=== PATIENT | female | born 1975 | race Caucasian/White ===

== ENCOUNTER 2020-05-29 11:44 | Emergency (ER) | payer BC, SELFPAY ==
[2020-05-29 12:00] VITALS: BP 129/87; PULSE 101; RESP 20; TEMP 36.7; O2SAT 100
--- NOTE | 2020-05-29 12:03 | ED.FEVER ---
HPI - Fever General Chief Complaint: Headache Stated Complaint: evans/fever Source: patient and RN notes reviewed Limitations: no limitations History of Present Illness HPI Narrative: The patient, previously mostly healthy smoker/nondrinker, presents with fever. Patient states she has a half week history of URI followed by one day of fever measured temporally 100.6. This is associated with nasal congestion, myalgias with frontal headache. No significant cough, S OB, wheezing, CP, loss of taste/smell, travel, sick family, earache, sore throat, neck pain, N/V/D, rash. She requests Covid testing for work, declines influenza. The patient agrees, in light of health emergency- in my medical judgement, only a personal chat was preferable to fully undress & examine the patient exhibiting potential COVID symptoms, in order to limit risk of infection. Related Data Home Medications Medication Instructions Recorded Confirmed levonorgestrel [Mirena] 1 device INTRAUTERINE ONCE 05/29/20 05/29/20 Allergies Allergy/AdvReac Type Severity Reaction Status Date / Time No Known Allergies Allergy Verified 05/29/20 12:06 Review of Systems Review of Systems: Narrative: General/Constitutional: No weight loss, REPORTS fever Eyes: N0: Redness,discharge Ears/Nose/Throat: No: Epistaxis,ear discharge Respiratory: Denies: Hemoptysis Gastrointestinal: No Vomiting, Bleeding-rectal Skin: No Lumps, eruption Neurologic: No Focal Weakness,Sz Hematologic: Denies: Petechiae/Purpura Psychiatric: No: Suicida ideationl All Other Systems: Reviewed and Negative PMFSH Comments At time of signature, agree with nursing past medical, surgical, social and family history. There is no relevant family history pertinent to the presenting complaint Exam Narrative: Exam Narrative: General Appearance: Well appearing, Conjunctiva clear Ears: Auditory canal normal, Nose: Rhinorrhea, Mucousal erythema Mouth/Throat: MM moist, supple, Respiratory: No respiratory distress, airway patent Cardiovascular: RRR, No JVD Skin: Warm, Dry Neurological: A&O x3, , Normal affect Course Vital Signs Vital signs: Vital Signs Temperature 98.1 F 05/29/20 12:00 Pulse Rate 101 H 05/29/20 12:00 Respiratory Rate 20 05/29/20 12:00 Blood Pressure 129/87 05/29/20 12:00 Pulse Oximetry 100 05/29/20 12:00 Temperature 98.1 F 05/29/20 12:00 Pulse Rate 101 H 05/29/20 12:00 Respiratory Rate 20 05/29/20 12:00 Blood Pressure 129/87 05/29/20 12:00 Pulse Oximetry 100 05/29/20 12:00 Discharge Plan Discharge Clinical Impression: Fever Qualifiers: Fever type: unspecified Qualified Code(s): R50.9 - Fever, unspecified Patient Disposition: Home, Self-Care Condition: Stable Instructions: Antibiotic Form, Rhinosinusitis (ED) Additional Instructions: Also try OTC preparations like Mucinex, Flonase, anthistamines [claritin, melchor, etc] Supplements like zinc and vitamin D are helpful during the viral season Prescriptions: New azithromycin 250 mg tablet See Rx Instructions .ROUTE .COMPLEX Qty: 6 RF: 0 tramadol 50 mg tablet 50 mg PO TID PRN (Reason: pain) Qty: 15 RF: 1 azelastine 137 mcg (0.1 %) aerosol,spray 137 mcg NASAL Q12H Qty: 30 RF: 0 No Action Mirena 20 mcg/24 hours (5 yrs) 52 mg Intrauterine Device 1 device INTRAUTERINE ONCE RF: 0 Other Ambulatory Orders: SARS-CoV-2 RNA, Qual RT-PCR (Routine) Location: Determined by Patient Ordered By: German Gould Follow-up/Referrals: UNKNOWN,DOCTOR [Primary Care Provider] - Stand Alone Forms: Work/School Release IP
== END 2020-05-29 12:54 | disposition home or self-care (01) ==
PROVIDERS: Emergency Provider Emergency Medicine
DX: R50.9 Fever, unspecified (principal); Z20.828 Contact with and (suspected) exposure to other viral communicable diseases
CPT/HCPCS: 99213; G0463

== ENCOUNTER 2020-05-31 12:40 | Outpatient (NON) | payer BC, SELFPAY ==
[2020-06-01 13:09] LABS: SARS-CoV-2 RNA PCR Negative
== END 2020-05-31 12:41 ==
LOC: ANHCOVIDDT 12:41
PROVIDERS: Visit Provider Emergency Medicine
DX: Z20.828 Contact with and (suspected) exposure to other viral communicable diseases (principal); R50.9 Fever, unspecified
CPT/HCPCS: 87635; C9803; U0003

== ENCOUNTER 2021-08-27 10:03 | Emergency (ER) | payer BC, SELFPAY ==
[2021-08-27 10:15] VITALS: BP 128/76; PULSE 104; RESP 16; TEMP 36.3; O2SAT 100
--- NOTE | 2021-08-27 10:16 | ED.URI ---
HPI - URI/Sore Throat General Chief Complaint: Upper Respiratory Infection Stated Complaint: Congestion,Cough Time Seen by Provider: 08/27/21 10:16 Source: patient, family, RN notes reviewed and old records reviewed Mode of arrival: ambulatory Limitations: no limitations History of Present Illness HPI Narrative: 45-year-old female presents to the [facility] with complaints of cough and congestion for 2-1/2 weeks. States that she tested negative, PCR at well now 2 weeks ago. Denies fevers. No chest pain or abdominal pain. No treatment prior to arrival MD elicited complaint: cough and nasal congestion Related Data Home Medications Medication Instructions Recorded Confirmed levonorgestrel [Mirena] 1 device INTRAUTERINE ONCE 05/29/20 08/27/21 Allergies Allergy/AdvReac Type Severity Reaction Status Date / Time No Known Allergies Allergy Verified 08/27/21 10:22 Review of Systems Review of Systems: All systems reviewed & are unremarkable except as noted in HPI and below Constitutional: Constitutional: Reports no additional constitutional complaints, Denies chills, Denies fever(s) and Denies headache(s) Eyes: Eyes: Reports no additional eye complaints ENT: Reports system reviewed and no additional complaints, except as documented, Denies vertigo, Denies dizziness, Denies headache(s), Denies nasal congestion and Denies sore throat Cardiovascular: Cardiovascular: Reports no additional cardiovascular complaints, Denies chest pain, Denies syncope, Denies rapid heart rate and Denies dyspnea Respiratory: Respiratory: Reports as per HPI, Reports chest congestion, Reports cough, Denies dyspnea and Denies wheezing Gastrointestinal: Gastrointestinal: Reports no additional gastrointestinal complaints, Denies abdominal pain, Denies diarrhea, Denies nausea and Denies vomiting Musculoskeletal: Musculoskeletal: Reports no additional musculoskeletal complaints and Denies numbness Integumentary/Breasts: Skin/Breast: Reports system reviewed and no additional complaints, except as docu Neurologic: Reports system reviewed and no additional complaints, except as documented, Denies vertigo, Denies dizziness, Denies syncope, Denies headache(s), Denies focal weakness and Denies numbness Psychiatric: Psychiatric: Reports no additional psychiatric complaints Allergic/Immunologic: Allergic/Immunologic: Reports no additional allergic/immunologic complaints and Denies wheezing PMFSH Past Medical History Medical History (Updated 08/27/21 @ 19:23 by Maya Lofton) No significant medical problems Surgical History Surgical History (Updated 08/27/21 @ 19:23 by Maya Lofton) No pertinent past surgical history Social History Social History (Updated 08/27/21 @ 19:24 by Maya Lofton) Gender identity (if verbalized by the patient): Female Comments At the time of my signature, I reviewed and agree with the nursing past medical, surgical, social, and family history. There is no relevant family history pertinent to the patient complaint. Exam Const: General: cooperative, no acute distress, well developed, alert and ill appearing acutely (Mildly) Nutritional Appearance: well nourished Orientation/consciousness: patient oriented x3 Limitations: no limitations HENMT: Head: normal to inspection Ears: external ears normal, TM's normal bilaterally and EAC's normal Eyes: Conjunctivae: conjunctivae normal Pupils: Equal, round and reactive pupils present Neck: Neck: normal visual inspection, no lymphadenopathy and no meningeal signs Chest: Chest palpation & inspection: normal inspection of the chest Resp: Effort & Inspection: normal respiratory effort and no use of accessory muscles Auscultation: clear to auscultation bilaterally, no crackles, no rales, no rhonchi and no wheezes Cardio: Rate: regular rate Rhythm: regular rhythm Back/Spine/Pelvis: Back: no CVA tenderness Skin: General skin exam: normal color Rashes: no rashes Wound
== END 2021-08-27 10:30 | disposition home or self-care (01) ==
PROVIDERS: Emergency Provider Nurse Practitioner
DX: J40 Bronchitis, not specified as acute or chronic (principal)
CPT/HCPCS: 99213; G0463

== ENCOUNTER 2022-11-24 00:46 | Emergency (ER) | payer OTHER, SELFPAY ==
[2022-11-24] VITALS (17 sets, daily range): BP systolic 119–139; BP diastolic 77–90; PULSE 88–118; RESP 11–17; TEMP 36.3–36.8; O2SAT 99–100
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
[2022-11-24] MEDS: HYDROmorphone HCL INJ (*CRX) 1 MG/ML SYR 0.5 MG IV PUSH ×2 (01:17→02:25)
[2022-11-24] MEDS: TETANUS,DIPHTHERIA,AC PERTUSSIS ADULT (0.5 ML) BOOSTRIX IM (01:20)
--- NOTE | 2022-11-24 02:19 | PC.NURSE ---
Patient stated her pain was still 9/10. Notified Dr. Boo who advised via VRBO to give 0.5mg Dilaudid and 15mg Toradol both via IVP.
[2022-11-24] MEDS: KETOROLAC 15 MG/ML VIAL (*BKC) IV PUSH (02:27)
--- NOTE | 2022-11-24 03:14 | PC.NURSE ---
Patient stated her pain in her left hand and right maurice is feeling much better (0/10), but her right ankle is still 9/10. Ice bag applied and Dr. Boo notified.
[2022-11-24] MEDS: fentaNYL CITRATE INJ (*CRX) 100 MCG/2 ML VIAL IV PUSH (03:51)
[2022-11-24] MEDS: oxyCODONE/ACETAMINOPHEN (*CRX) 5-325 MG TABLET 1 TABLET PO (05:11)
== END 2022-11-24 05:53 | disposition home or self-care (01) ==
PROVIDERS: Emergency Provider Emergency Medicine
DX: S92.021A Displaced fracture of anterior process of right calcaneus, initial encounter for closed fracture (principal); V43.52XA Car driver injured in collision with other type car in traffic accident, initial encounter; Z23 Encounter for immunization
CPT/HCPCS: 29515; 73562; 73590; 73610; 73630; 73700; 90715; 96372; 96374; 96375; 96376; 99284; A9270; J1170; J1885; J3010

== ENCOUNTER 2022-11-29 02:44 | Emergency (ER) | payer MEDICAID, SELFPAY ==
[2022-11-29 02:48] VITALS: BP 125/77; PULSE 84; RESP 20; TEMP 37; O2SAT 98
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
[2022-11-29] MEDS: oxyCODONE/ACETAMINOPHEN (*CRX) 5-325 MG TABLET 1 TABLET PO (03:44)
[2022-11-29] MEDS: NAPROXEN 500 MG TABLET PO (03:44)
[2022-11-29 04:50] VITALS: BP 128/72; PULSE 88; RESP 16; O2SAT 100
== END 2022-11-29 04:51 | disposition home or self-care (01) ==
PROVIDERS: Emergency Provider Emergency Medicine
DX: S92.001D Unspecified fracture of right calcaneus, subsequent encounter for fracture with routine healing (principal); V49.9XXD Car occupant (driver) (passenger) injured in unspecified traffic accident, subsequent encounter
CPT/HCPCS: 29515; 99283; 99284; A9270

== ENCOUNTER 2023-10-22 19:29 | Emergency (ER) | payer SELFPAY ==
[2023-10-22 19:37] VITALS: BP 117/84; PULSE 99; RESP 18; TEMP 36.1; O2SAT 100
--- NOTE | 2023-10-22 19:45 | ED.EYEPROB ---
HPI - Eye Problem General Chief complaint: Eye Problems Stated complaint: Left Eye Irritation Time Seen by Provider: 10/22/23 19:36 Source: patient and RN notes reviewed Mode of arrival: ambulatory Limitations: no limitations History of Present Illness HPI Narrative: Patient presents today complaining of pain and redness to the left eye. Around 4:00 p.m. patient was putting on fake eyelashes when she may have scratched her cornea. She reports foreign body sensation and has been flushing the eye out for the past couple of hours without relief of symptoms. Denies vision changes. Patient does wear contacts, but does not have any currently. Related Data Home Medications Medication Instructions Recorded Confirmed levonorgestrel 21 mcg/24 hours (8 1 device intrauterine ONCE 05/29/20 10/22/23 yrs) 52 mg intrauterine device (Mirena) Allergies Allergy/AdvReac Type Severity Reaction Status Date / Time No Known Allergies Allergy Verified 10/22/23 19:32 Review of Systems Review of Systems: CONSTITUTIONAL: Denies body aches, fever, chills, or sweats. EYES: Left eye redness and foreign body sensation, pain ENT: Denies rhinorrhea, congestion, sore throat, or otalgia. CARDIOVASCULAR: Denies chest pain, palpitations, or edema. RESPIRATORY: Denies cough or dyspnea. GASTROINTESTINAL: Denies abdominal pain, nausea, vomiting, or diarrhea. GENITOURINARY: Denies dysuria or hematuria. SKIN: Denies rash, itching, or wounds. MUSCULOSKELETAL: Denies back pain, joint pain, or myalgia. NEUROLOGIC: Denies headache, numbness, tingling, or weakness. PSYCH: Denies depression or anxiety. [facility] Past Medical History Medical History No significant medical problems Surgical History Surgical History No pertinent past surgical history Social History Social History Gender identity (if verbalized by the patient): Female Comments At time of signature, I have reviewed and agree with nursing past medical, surgical, social and family history unless otherwise noted. Please see nursing chart for further information. There is no relevant family history pertinent to the presenting complaint Exam Narrative: GENERAL: Well-appearing, well-nourished, and in no acute distress. HEAD: Normocephalic, atraumatic. EYES: EOMI. PERRL. Left eye: Moderately injected conjunctiva. Lids are slightly edematous. Watering noted. See procedure note with fluorescein uptake. Right eye normal. ENT: Mucous membranes pink and moist. NECK: Normal AROM. CHEST: No respiratory distress. EXTREMITIES: Normal range of motion. No edema. SKIN: Warm, dry, no rash. Capillary refill normal. Normal skin turgor. NEURO: No focal deficits. Alert and oriented x3. Gait steady. PSYCH: Normal affect. No signs of depression or anxiety. Course Course Level of Care: Express Care Visit Vital Signs Vital signs: Vital Signs Temperature 97.0 F L 10/22/23 19:37 Pulse Rate 99 10/22/23 19:37 Respiratory Rate 18 10/22/23 19:37 Blood Pressure 117/84 10/22/23 19:37 Pulse Oximetry 100 10/22/23 19:37 Oxygen Delivery Room Air 10/22/23 19:37 Temperature 97.0 F L 10/22/23 19:37 Pulse Rate 99 10/22/23 19:37 Respiratory Rate 18 10/22/23 19:37 Blood Pressure 117/84 10/22/23 19:37 Pulse Oximetry 100 10/22/23 19:37 Oxygen Delivery Room Air 10/22/23 19:37 Reviewed Procedures Other Procedure Procedure 1: Other Procedure: Left eye was anesthetized with 1 drop of tetracaine and anesthesia was achieved. The eye was flushed with eye wash. Lid was inverted and examined. Moistened Qtip was used to sweep underneath the upper eyelid with 0 foreign bodies resulting. Cornea was dyed with fluorescein and 1 abrasion noted to the 11 o'clock position
== END 2023-10-22 19:49 | disposition home or self-care (01) ==
PROVIDERS: Emergency Provider Nurse Practitioner
DX: S05.02XA Injury of conjunctiva and corneal abrasion without foreign body, left eye, initial encounter (principal); X58.XXXA Exposure to other specified factors, initial encounter
CPT/HCPCS: 99213; A9270; G0463

== ENCOUNTER 2024-01-10 10:05 | Emergency (ER) | payer SELFPAY ==
--- NOTE | 2024-01-10 10:30 | ED.WOUNDLAC ---
HPI - Wound/Laceration General Chief Complaint: Wound/Laceration Stated Complaint: Right Thumb Injury Time Seen by Provider: 01/10/24 10:25 Source: patient and RN notes reviewed Mode of arrival: ambulatory Limitations: no limitations History of Present Illness HPI narrative: Patient presents today with a laceration to the tip of her thumb that was sustained just prior to arrival on a razor blade in a tool box at home. Currently rates her pain 2/10. She is not up-to-date on her tetanus vaccine. Related Data Home Medications Medication Instructions Recorded Confirmed levonorgestrel 21 mcg/24 hr (up to 1 device intrauterine ONCE 05/29/20 10/22/23 8 years) 52 mg intrauterine device (Mirena) Allergies Allergy/AdvReac Type Severity Reaction Status Date / Time No Known Allergies Allergy Verified 10/22/23 19:32 Review of Systems Review of Systems: CONSTITUTIONAL: Denies body aches, fever, chills, or sweats. EYES: Denies visual changes, redness, or discharge. ENT: Denies rhinorrhea, congestion, sore throat, or otalgia. CARDIOVASCULAR: Denies chest pain, palpitations, or edema. RESPIRATORY: Denies cough or dyspnea. GASTROINTESTINAL: Denies abdominal pain, nausea, vomiting, or diarrhea. GENITOURINARY: Denies dysuria or hematuria. SKIN: + right thumb laceration MUSCULOSKELETAL: Denies back pain, joint pain, or myalgia. NEUROLOGIC: Denies headache, numbness, tingling, or weakness. PSYCH: Denies depression or anxiety. PMFSH Past Medical History Medical History No significant medical problems Surgical History Surgical History No pertinent past surgical history Social History Social History Gender identity (if verbalized by the patient): Female Comments At time of signature, I have reviewed and agree with nursing past medical, surgical, social and family history unless otherwise noted. Please see nursing chart for further information. There is no relevant family history pertinent to the presenting complaint Exam Narrative: GENERAL: Well-appearing, well-nourished, and in no acute distress. HEAD: Normocephalic, atraumatic. EYES: EOMI. No redness or drainage. Conjunctivae normal. ENT: Mucous membranes pink and moist. NECK: Normal AROM. CHEST: No respiratory distress. EXTREMITIES: 1.5 cm full-thickness linear laceration to the lateral distal phalanx of the right thumb. No active bleeding. Distal sensation intact. Capillary refill normal. Full range of motion against resistance. SKIN: Warm, dry, no rash. Capillary refill normal. Normal skin turgor. NEURO: No focal deficits. Alert and oriented x3. Gait steady. PSYCH: Normal affect. No signs of depression or anxiety. Course Course Level of Care: Express Care Visit Vital Signs Vital signs: Vital Signs Temperature 97.4 F L 01/10/24 10:43 Pulse Rate 102 H 01/10/24 10:43 Respiratory Rate 18 01/10/24 10:43 Blood Pressure 128/90 01/10/24 10:43 Pulse Oximetry 99 01/10/24 10:43 Oxygen Delivery Room Air 01/10/24 10:43 Temperature 97.4 F L 01/10/24 10:43 Pulse Rate 102 H 01/10/24 10:43 Respiratory Rate 18 01/10/24 10:43 Blood Pressure 128/90 01/10/24 10:43 Pulse Oximetry 99 01/10/24 10:43 Oxygen Delivery Room Air 01/10/24 10:43 Procedures Laceration Laceration 1: Date: 01/10/24 Time: 10:52 Site: hand Side (If applicable): right Size (cm): 1.5 Description: linear Depth: simple, single layer Local Anesthetic: lidocaine 1% Amount of anesthesia used (mL): 2 Pre-repair: wound explored and irrigated ====== Skin Level ====== Skin layer closed with: nylon Size (cm): 5-0 Number of sutures: 4 Technique: simple, interrupted
[2024-01-10] MEDS: TETANUS,DIPHTHERIA,AC PERTUSSIS ADULT (0.5 ML) BOOSTRIX IM (10:38)
[2024-01-10 10:43] VITALS: BP 128/90; PULSE 102; RESP 18; TEMP 36.3; O2SAT 99
== END 2024-01-10 10:56 | disposition home or self-care (01) ==
PROVIDERS: Emergency Provider Nurse Practitioner
DX: S61.011A Laceration without foreign body of right thumb without damage to nail, initial encounter (principal); W26.8XXA Contact with other sharp object(s), not elsewhere classified, initial encounter; Z23 Encounter for immunization
CPT/HCPCS: 12001; 90471; 90715; 99212; G0463

== ENCOUNTER 2024-09-17 20:14 | Emergency (ER) | payer SELFPAY ==
[2024-09-17 20:42] VITALS: BP 124/81; PULSE 101; RESP 20; TEMP 36.2; O2SAT 100
--- NOTE | 2024-09-17 22:50 | ECG_ITS ---
Test Date: 2024-09-17 23:02:06 Measurements Intervals [place] Rate: 96 P: 71 ND: 138 QRS: 71 QRSD: 89 T: 69 QT: 380 QTc: 482 Interpretive Statements SINUS RHYTHM POSSIBLE LEFT ATRIAL ENLARGEMENT BORDERLINE ECG No previous ECG available for comparison Electronically Signed On 09-18-2024 06:39:21 [employer] by Omar Beavers D.O.
--- NOTE | 2024-09-18 00:44 | PC.NURSE ---
call x 2 no answer
--- NOTE | 2024-09-18 05:01 | PC.NURSE ---
pt to finished yarn examiner this is a fucking joke. I have been here since 8pm. How much longer is it going to be. this rn informed that they had called her name numerous time and patient verbalized this is bullshit. I am fucking leaving.
== END 2024-09-18 01:26 | disposition left against medical advice (07) ==
LOC: ANHED 09-18 00:57
PROVIDERS: Emergency Provider Emergency Medicine
DX: R05.9 Cough, unspecified (principal)
CPT/HCPCS: 93005; 99199

== ENCOUNTER 2024-09-19 13:51 | Emergency (ER) | payer SELFPAY ==
[2024-09-19 14:02] VITALS: BP 133/77; PULSE 100; RESP 18; TEMP 36.6; O2SAT 100
--- NOTE | 2024-09-19 14:11 | ED.URI ---
HPI - URI/Sore Throat General Chief Complaint: Upper Respiratory Infection Stated Complaint: cold symptoms Source: patient Mode of arrival: ambulatory Limitations: no limitations History of Present Illness HPI Narrative: 48-year-old female presented for complaint of cough, chest congestion, nasal congestion and drainage. Onset 1 week.Taking Mucinex DM. Denies shortness of breath, wheezing nausea vomiting diarrhea, fevers or chills. Related Data Home Medications ?Medication ?Instructions ?Recorded ?Confirmed ?Last Taken ?Type levonorgestrel (Mirena) 1 device intrauterine ONCE 05/29/20 10/22/23 Unknown History Allergies Allergy/AdvReac Type Severity Reaction Status Date / Time No Known Allergies Allergy Verified 09/19/24 13:54 Review of Systems Review of Systems: Per HPI All systems reviewed & are unremarkable except as noted in HPI and below PMFSH Past Medical History Medical History No significant medical problems Surgical History Surgical History No pertinent past surgical history Social History Social History (Updated 09/19/24 @ 14:13 by Tamy Botello, GEOSPATIAL TECHNOLOGIST) Smoking packs per day: 1 Smoking cigarettes per day: 20.0 Smoking status: Current every day smoker Gender identity (if verbalized by the patient): Female Comments At time of signature, I have reviewed and agree with nursing past medical, surgical, social and family history unless otherwise noted. Please see nursing chart for further information. There is no relevant family history pertinent to the presenting complaint Exam Narrative: GENERAL: Well-appearing, in no acute distress. EYES: EOMI. No redness or drainage. Conjunctivae normal. ENT: Mucous membranes pink and moist. No rhinorrhea. TMs normal bilaterally. Throat normal. Uvula midline. NECK: Normal AROM. Supple. CHEST: No respiratory distress. Lungs clear to all sidhu. HEART: Regular rate and rhythm. No murmur appreciated. ABDOMEN: Soft, nontender, nondistended, normal active bowel sounds. SKIN: Warm, dry, Capillary refill normal. Normal skin turgor. NEURO: Alert and oriented x3. Gait steady. Course Course Emergency Course: Patient is aware of diagnosis, understands and agrees to treatment plan. Anticipatory guidance given. Patient agrees to follow-up as directed and is aware of reasons to seek care at the emergency department. Portions of this record may have been created with voice recognition software Level of Care: Express Care Visit Vital Signs Vital signs: Vital Signs Temperature 97.8 F 09/19/24 14:02 Pulse Rate 100 09/19/24 14:02 Respiratory Rate 18 09/19/24 14:02 Blood Pressure 133/77 09/19/24 14:02 Pulse Oximetry 100 09/19/24 14:02 Oxygen Delivery Room Air 09/19/24 14:02 Temperature 97.8 F 09/19/24 14:02 Pulse Rate 100 09/19/24 14:02 Respiratory Rate 18 09/19/24 14:02 Blood Pressure 133/77 09/19/24 14:02 Pulse Oximetry 100 09/19/24 14:02 Oxygen Delivery Room Air 09/19/24 14:02 MDM - URI/Sore Throat MDM Narrative Medical decision making narrative: neg flu and covid. Discussed physical exam findings and rx's. Advised supportive measures and signs/symptoms to go to the ER. Pt is appropriate for outpt treatment and f/u. Differential Diagnosis Differential diagnosis: Likely upper respiratory infection, otitis media, sinusitis, viral infection and bronchitis Discharge Plan Discharge Clinical Impression: Bronchitis Patient Disposition: Home, Self-Care Condition: Stable Instructions: Antibiotic Form, Acute Bronchitis (ED) Additional Instructions: Take medication as directed Recommendations: Flonase spray and Zyrtec (or Claritin/Sarah) over the counter Cough syrup may cause drowsiness; avoid driving or take it at night time. Tylenol 1000mg every 8 hours as needed for pain rest, fluids, avoid smoking, and increase humidity of the air at home by using humidifier. Follow up with your primary care provider as needed in 1 week Go to the ER for worsening symptoms or concerns Patient Language: Hebrew Prescriptions: New prednisone 50 mg tablet 50 mg PO DAILY Qty: 5 0RF albuterol sulfate 90 mcg/actuation HFA aerosol inhaler 2 inh inhalation QID PRN (Reason: shortness of breath or wheezing) Qty: 8.5 0RF No Action Mirena 20 mcg/24 hours (5 yrs) 52 mg Intrauterine Device 1 device INTRAUTERINE ONCE ofloxacin 0.3 % drops See Rx Instructions .ROUTE .COMPLEX Qty: 10 0RF Rx Instructions: put 1-2 drps into affected eye(s) every 2-4 h x 2 days, then 1-2 drps 4 times/day days 3-7 Follow-up/Referrals: PHYSICIAN,PROFESSOR OF COUNSELING [Primary Care Provider] - Time of Disposition: 14:30
[2024-09-19 14:31] LABS: EDCOVIDSCREEN Negative (Negative); EDINFLUASCREEN Negative (Negative); EDINFLUBSCREEN Negative (Negative)
== END 2024-09-19 14:31 | disposition home or self-care (01) ==
PROVIDERS: Emergency Provider Nurse Practitioner Family
DX: J40 Bronchitis, not specified as acute or chronic (principal); Z20.822 Contact with and (suspected) exposure to COVID-19; F17.210 Nicotine dependence, cigarettes, uncomplicated
CPT/HCPCS: 87426; 87804; 99213; G0463